=== PATIENT | female | born 1995 ===

== ENCOUNTER 2018-02-09 00:40 | Observation (INO) | payer OTHER, SELFPAY ==
[2018-02-09] MEDS ORDERED: Acetaminophen 325 MG TAB PO PRN (00:48)
[2018-02-09] MEDS: Sodium Chloride 0.9% 1,000 ML IV SCH ×4 (02:08→20:41)
[2018-02-09 02:15] LABS: #Basophils 0.1 thou/uL (0.0-0.2); #Eosinphils 0.2 thou/uL (0.0-0.7); #Lymphocytes 2.8 thou/uL (1.20-3.40); #Monocytes 0.6 thou/uL (0.11-0.59); %Basophils 0.8 % (0.0-1.0); %Eosinophils 2.9 % (0.0-10.0); %Lymphocytes 42.6 % (28.0-48.0); %Monocytes 8.9 % (0.0-4.0); %Neutrophils 44.9 % (31.0-61.0); Hemoglobin 13.1 g/dL (12.0-16.0); Mean Corpuscular HGB CONC 35.5 g/dL (32.0-36.0); Mean Corpuscular Hemoglobin 32.7 pg (25.0-35.0); Mean Corpuscular Volume 92.3 fl (77.0-87.0); Mean Platelet Volume 7.3 fL (7.4-10.4); Platelet Count 273 thou/uL (130-400); Red Blood Cell (RBC) Count 4.01 mill/uL (4.00-5.20); White Blood Cell (WBC) Count 6.7 thou/uL (4.8-10.8)
[2018-02-09 02:25] VITALS: BMI 25.9
[2018-02-09 02:34] LABS: Anion Gap 9 mmol/L (10-20); BUN (Urea Nitrogen) 9 mg/dL (7.0-18.7); Calc. Creatinine Clearance 137 mL/min (70-130); Calcium 8.9 mg/dL (7.8-10.44); Carbon Dioxide 26 mmol/L (22-29); Chloride 111 mmol/L (98-107); Estimated GFR-MDRD Greater than 90; Glucose 89 mg/dL (70-105); Potassium 3.6 mmol/L (3.5-5.1); Sodium 142 mmol/L (136-145)
--- NOTE | 2018-02-09 02:52 | HP ---
PRESENTING COMPLAINT: "Pain in my calves." HISTORY OF PRESENT ILLNESS: Ms. Mamie Rios is a 22-year-old female with no past medical history, who is an [employer], and reports working out excessively on Monday (she states it was a leg day) and was doing a lot of weight lifting. Later in the day, she felt very sore, especially with pain in both calves, which made her unable to walk. This continued to progress and then by yesterday , it was associated with nausea and she felt woozy. She then went to the emergency room at [facility], where she was found to have a CPK of greater than 5000 and rising. Her renal function was within normal limits. She was given up to 9 liters of IV fluids and a Doppler ultrasound was done, which showed no evidence of DVT. She was then transferred to [facility] for further care. PAST MEDICAL HISTORY: None. PAST SURGICAL HISTORY: Remote history of surgical correction of Meckel's diverticulitis. FAMILY HISTORY: Reviewed and noncontributory. SOCIAL HISTORY: Does not smoke cigarette, drink alcohol, or use illicit drugs. ALLERGIES: None. HOME MEDICATIONS: Reports being on control, but no other medications. REVIEW OF SYSTEMS: All systems reviewed and are negative except as stated in HPI. PHYSICAL EXAMINATION: VITAL SIGNS: Within normal limits. GENERAL: Not in acute distress, lying comfortably in bed. HEENT: Not pale, anicteric. Moist mucous membrane. PERRLA. EOMI. NECK: Supple. Full range of movement. CARDIOVASCULAR: S1, S2 only. Regular rate and rhythm. No murmurs, rubs, or gallops. RESPIRATORY: Vesicular breath sounds bilaterally with no wheezes, rales, or rhonchi. ABDOMEN: Soft, nontender, nondistended. Bowel sounds normoactive. MUSCULOSKELETAL: No edema. Tenderness in both calves. SKIN: Warm, dry, well perfused. No rashes or lesions. No erythema. PSYCHIATRIC: Normal mood and affect. NEUROLOGIC: Alert and well oriented to time, place, and person. No focal deficits. LABORATORY AND IMAGING: As stated in HPI. ASSESSMENT AND PLAN: #1: Rhabdomyolysis: This was brought about by excessive exertion/exercise. She was seen at [facility], hydrated and then transferred to [facility] for further care. Plan - Repeat a CMP and CPK, continue hydration. - If she is acidotic, then we will place on sodium bicarbonate and consider repeat ABG. - Trend CPK. - Monitor renal function. - If the patient fails to improve, then we will get a Nephrology consult. CODE STATUS: FULL CODE. DEEP VENOUS THROMBOSIS PROPHYLAXIS: The patient is young and ambulatory, does not require DVT prophylaxis. MTDD
[2018-02-09 03:00] LABS: CK (CPK) 8103 U/L (29-168)
[2018-02-09 06:29] LABS: Bilirubin Negative (Negative); Blood, Urine Trace (Negative); Clarity CLEAR (Clear); Glucose, Urine (Dipstick) Negative (Negative); Leukocyte Trace (Negative); Nitrite Negative (Negative); Protein, Urine (Dipstick) Negative (Neg-Trace); Urobilinogen 0.2 mg/dL (0.2-1.0); pH, Urine 7.5 (5.0-9.0)
[2018-02-09 06:32] LABS: Bacteria/HPF Rare-Few HPF (None Seen); Hyaline Casts/LPF 0-3 HYALINE CAST LPF (0-3 Hyaline); RBC/HPF 0-3 HPF (0-3); Squamous Epithelial 0-3 HPF (0-3); WBC/HPF 0-3 HPF (0-3)
[2018-02-09] MEDS: Sodium Bicarbonate Tab 325 MG TAB PO SCH ×2 (07:43→20:04)
[2018-02-09 15:23] LABS: Anion Gap 8 mmol/L (10-20); BUN (Urea Nitrogen) 7 mg/dL (7.0-18.7); Calc. Creatinine Clearance 145 mL/min (70-130); Calcium 8.9 mg/dL (7.8-10.44); Carbon Dioxide 27 mmol/L (22-29); Chloride 109 mmol/L (98-107); Estimated GFR-MDRD Greater than 90; Glucose 79 mg/dL (70-105); Potassium 3.8 mmol/L (3.5-5.1); Sodium 140 mmol/L (136-145)
[2018-02-09 15:36] LABS: CK (CPK) 7354 U/L (29-168)
[2018-02-10] MEDS: Sodium Chloride 0.9% 1,000 ML IV SCH ×2 (03:25→10:12)
[2018-02-10 03:35] VITALS: TEMP 98.6
[2018-02-10 04:35] LABS: #Eosinphils 0.2 thou/uL (0.0-0.7); #Lymphocytes 2.6 thou/uL (1.20-3.40); #Monocytes 0.4 thou/uL (0.11-0.59); #Neutrophils 3.4 thou/uL (1.40-6.50); %Basophils 0.5 % (0.0-1.0); %Eosinophils 2.5 % (0.0-10.0); %Lymphocytes 39.2 % (28.0-48.0); %Monocytes 6.6 % (0.0-4.0); %Neutrophils 51.3 % (31.0-61.0); Hemoglobin 13.8 g/dL (12.0-16.0); Mean Corpuscular HGB CONC 34.3 g/dL (32.0-36.0); Mean Corpuscular Hemoglobin 31.9 pg (25.0-35.0); Mean Corpuscular Volume 92.8 fl (77.0-87.0); Mean Platelet Volume 7.4 fL (7.4-10.4); Platelet Count 288 thou/uL (130-400); RBC Distribution Width 11.2 % (11.5-14.5); Red Blood Cell (RBC) Count 4.32 mill/uL (4.00-5.20); White Blood Cell (WBC) Count 6.6 thou/uL (4.8-10.8)
[2018-02-10 04:49] LABS: Anion Gap 9 mmol/L (10-20); BUN (Urea Nitrogen) 7 mg/dL (7.0-18.7); Calc. Creatinine Clearance 143 mL/min (70-130); Calcium 8.9 mg/dL (7.8-10.44); Carbon Dioxide 25 mmol/L (22-29); Chloride 109 mmol/L (98-107); Estimated GFR-MDRD Greater than 90; Glucose 98 mg/dL (70-105); Magnesium 1.8 mg/dL (1.7-2.2); Potassium 3.5 mmol/L (3.5-5.1); Sodium 139 mmol/L (136-145)
[2018-02-10 05:01] LABS: CK (CPK) 5804 U/L (29-168)
[2018-02-10 11:41] VITALS: BP 124/79
--- NOTE | 2018-02-12 13:12 | DIS ---
DATE OF ADMISSION: 02/09/2018 DATE OF DISCHARGE: 02/10/2018 PRIMARY CARE PHYSICIAN: Out of town. DISCHARGE DIAGNOSIS: Rhabdomyolysis. CONSULTATIONS: None. PROCEDURES: None. HISTORY AND PHYSICAL: Ms. 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 Later in the day, she felt very sore associated with pain in the calves and was really unable to walk. She continued to progress and 1 day prior to admission, it was associated with nausea and she got lightheaded. She went to the Emergency Department where she was found to have a CPK of 5000. Her renal function was stable. She was given 9 liters IV fluids and Doppler ultrasound done, which showed no evidence of DVT. She was subsequently transferred here to our ER for further care. Workup in the Emergency Department was minimal. We were called for admission. HOSPITAL COURSE: The patient was seen and examined by Dr. Hsieh in the Emergency Department and she was started on IV fluids. Overnight, CBC remained stable. CK went from 8100 to 7100 to 7300 and down to 5800 by the morning of 02/10/2018 and she was subsequently cautioned to drink plenty of fluids and was discharged home with outpatient lab work. PHYSICAL EXAMINATION: The patient was seen and examined on the date of discharge. Discharge plan and disposition were discussed with the patient [id number] at the bedside. DISCHARGE MEDICATIONS: None. DISCHARGE CONDITION: Stable. DISCHARGE ACTIVITY: As tolerated. The patient was cautioned not to do any workouts for the next week or 2. Her discharge activity is as tolerated, otherwise. DISCHARGE DIET: No restrictions. FOLLOWUP: Follow up with her primary care physician locally and get labs drawn in 2 days, repeat CK ( 02/12/2018 CK value 1831). MTDD
== END 2018-02-10 13:14 | disposition home or self-care (01) ==
LOC: 2SW 01:34
PROVIDERS: ADMIT Internal Medicine; ATTEND Internal Medicine
DX: M62.82 Rhabdomyolysis (principal)
CPT/HCPCS: 36415; 80048; 81003; 81015; 82550; 83735; 85025; 96360; 96361; G0378